=== PATIENT | female | born 1995 | race Caucasian/White ===

== ENCOUNTER 2016-10-06 12:11 | Inpatient (IN) | payer BC ==
[~2016-10-06] VITALS: Ht 160 cm; Wt 119.5 kg
[2016-10-24] VITALS (65 sets, daily range): BP systolic 90–151; BP diastolic 51–97; PULSE 67–141; TEMP 97.6–99.2
[2016-10-24 07:53] LABS: BASO % 0.1 % (0.0-2.0); EOS # 0.1 (0.0-0.7); EOS % 0.7 % (0-4.0); GRAN # 5.8 (1.4-6.5); LYMPH # 1.7 (1.2-3.4); LYMPH % 21.2 % (20.0-51.0); MEAN CELL VOLUME 84 fl (80.0-100.0); MEAN CORPUSCULAR HGB CONC 33 g/dl (33.0-37.0); MEAN PLATELET VOLUME 10.9 fl (7.4-10.4); MONO # 0.6 (0.1-0.6); MONO % 6.8 % (1.7-9.3); PLATELET COUNT 260 K/mm3 (130-400); RED BLOOD COUNT 4.04 M/mm3 (4.10-5.30); REDCELL DISTRIBUTION WIDTH-CV 14.7 % (11.5-14.5); WHITE BLOOD COUNT 8.2 K/mm3 (4.8-10.8)
[2016-10-24 07:55] LABS: HEMATOCRIT 34.1 % (37.0-47.0); HEMOGLOBIN 11.4 g/dl (12.5-16.0); MEAN CORPUSCULAR HEMOGLOBIN 28 pg (27.0-31.0)
[2016-10-25] VITALS (19 sets, daily range): BP systolic 13–149; BP diastolic 68–111; PULSE 72–118; TEMP 97.5–99.2
[2016-10-26 07:17] VITALS: BP 118/97; PULSE 101; TEMP 97.5
[2016-10-26 08:01] LABS: HEMATOCRIT 30.5 % (37.0-47.0)
[2016-10-26 16:02] VITALS: BP 102/64; PULSE 100; TEMP 98
[2016-10-26 20:30] VITALS: BP 121/68; PULSE 83; TEMP 97.5
[2016-10-27 07:37] VITALS: BP 104/68; PULSE 80; TEMP 97.3
[2016-10-27] MEDS ORDERED: IBU600 MG PO (13:19)
[2016-10-27] MEDS ORDERED: PERCOCET 325 MG1 TA2 PO (13:19)
[2016-10-27 16:14] VITALS: BP 118/67; PULSE 73; TEMP 98.3
[2016-10-27 20:00] VITALS: BP 137/88; PULSE 100; TEMP 98.9
[2016-10-28 07:37] VITALS: BP 113/83; PULSE 88; TEMP 98.1
== END 2016-10-28 10:20 | disposition home or self-care (01) | DRG 766 ==
LOC: EDSTATUS 10-15 08:05 → LDRO 10-15 12:11 → OB 10-24 07:02 → LDR 10-24 07:02 → OB 10-25 10:15
PROVIDERS: Obstetrics & Gynecology
PROC: 10D00Z1 Extraction of Products of Conception, Low, Open Approach (ICD-10-PCS; principal; 2016-10-25)
PROC: 0U960ZZ Drainage of Left Fallopian Tube, Open Approach (ICD-10-PCS; 2016-10-25)
PROC: 3E033VJ Introduction of Other Hormone into Peripheral Vein, Percutaneous Approach (ICD-10-PCS; 2016-10-25)
DX: O48.0 Post-term pregnancy (principal); O62.0 Primary inadequate contractions; O75.89 Other specified complications of labor and delivery; N83.8 Other noninflammatory disorders of ovary, fallopian tube and broad ligament; Z3A.41 41 weeks gestation of pregnancy; Z37.0 Single live birth
CPT/HCPCS: J0690; J1885; J2175; J2210; J2270; J2370; J2400; J2405; J2590; J2795; J3010; J7120

== ENCOUNTER 2019-06-11 08:46 | Inpatient (IN) | payer MEDICAID ==
[~2019-06-11] VITALS: Ht 160 cm; Wt 99.1 kg
[~2019-06-11 08:46] MED LIST: IBU600 MG PO; PERCOCET 325 MG1 TA2 PO
[2019-06-12] VITALS (15 sets, daily range): BP systolic 93–113; BP diastolic 51–73; PULSE 71–100; TEMP 97.4–97.9
--- NOTE | 2019-06-12 10:10 | NUR ---
Presents to labor amd delivery traylor for repeat section. Assessment done, questions offered and answered. Oriented to room.
[2019-06-12] MEDS ORDERED: PRENATAL MVI (10:36)
[2019-06-12 11:19] LABS: BASO % 0.2 % (0.0-2.0); EOS % 0.3 % (0-4.0); GRAN # 6.1 (1.4-6.5); GRAN % 67.1 % (42.2-75.2); HEMOGLOBIN 12.1 g/dl (12.5-16.0); LYMPH # 2.3 (1.2-3.4); LYMPH % 25.1 % (20.0-51.0); MEAN CELL VOLUME 90 fl (80.0-100.0); MEAN CORPUSCULAR HEMOGLOBIN 30 pg (27.0-31.0); MEAN CORPUSCULAR HGB CONC 33 g/dl (33.0-37.0); MEAN PLATELET VOLUME 10.4 fl (7.4-10.4); MONO # 0.6 (0.1-0.6); PLATELET COUNT 200 K/mm3 (130-400); RED BLOOD COUNT 4.08 M/mm3 (4.10-5.30); REDCELL DISTRIBUTION WIDTH-CV 13.8 % (11.5-14.5)
[2019-06-12 11:32] LABS: HEMATOCRIT 36.8 % (37.0-47.0)
[2019-06-12 12:21] LABS: MUCOUS Present /lpf; PH 6 (5-8); SQUAMOUS EPITHELIAL 0-2 /hpf; URINE APPEARANCE Hazy; URINE BACTERIA None Seen /hpf; URINE BILIRUBIN Negative (NEGATIVE); URINE BLOOD Negative (NEGATIVE); URINE COLOR Yellow; URINE GLUCOSE Negative (NEGATIVE); URINE KETONE Trace (NEGATIVE); URINE LEUKOCYTE ESTERASE Negative (NEGATIVE); URINE NITRATE Negative (NEGATIVE); URINE PROTEIN(semi-quant) 1+ (NEGATIVE); URINE RBC 0-2 /hpf; URINE UROBILINOGEN Negative (NEGATIVE); URINE WBC 0-2 /hpf
[2019-06-12 12:45] LABS: COLLECTION METHOD CLEAN CATCH
--- NOTE | 2019-06-12 13:05 | NUR ---
To pacu with this nurse and anesthesia Kari. Monitors on, warm blankets on. Denies any discomfort or pain at this time. Father of the baby at bedside.
--- NOTE | 2019-06-12 13:35 | NUR ---
To room 213 via bed, alert. Father of the baby at bedside.
--- NOTE | 2019-06-12 13:50 | NUR ---
Rests in bed, alert. Denies any pain or discomfort at this time. Father of the baby at bedside. Monitors on, scds on.
--- NOTE | 2019-06-12 14:20 | NUR ---
Rests in bed, alert. Holds baby lovingly. States just fed her.
--- NOTE | 2019-06-12 15:45 | NUR ---
Rests in bed, alert, holding baby. Percocet 5/325 mg one given per request and as ordered.
[2019-06-12 17:54] LABS: TRICYCLIC ANTIDEPRESS URINE NEGATIVE
[2019-06-13 03:00] VITALS: BP 121/84; PULSE 84; TEMP 97.9
[2019-06-13 07:14] LABS: HEMOGLOBIN 11.4 g/dl (12.5-16.0)
[2019-06-13 07:20] LABS: HEMATOCRIT 34.4 % (37.0-47.0)
[2019-06-13 08:10] VITALS: BP 121/98; PULSE 80; TEMP 98.7
[2019-06-13] MEDS ORDERED: IBU600 MG PO (11:28)
[2019-06-13] MEDS ORDERED: PERCOCET 325 MG1 TA2 PO (11:28)
[2019-06-13 16:16] VITALS: BP 114/68; PULSE 76; TEMP 97.4
[2019-06-13 20:00] VITALS: BP 105/60; PULSE 65; TEMP 98.2
[2019-06-14 08:13] VITALS: BP 102/63; PULSE 76; TEMP 98.1
== END 2019-06-14 13:57 | disposition home or self-care (01) | DRG 788 ==
LOC: OB 06-12 08:44
PROVIDERS: ADMIT Obstetrics & Gynecology
PROC: 10D00Z1 Extraction of Products of Conception, Low, Open Approach (ICD-10-PCS; principal; 2019-06-12)
DX: O34.211 Maternal care for low transverse scar from previous cesarean delivery (principal); O99.62 Diseases of the digestive system complicating childbirth; K21.9 Gastro-esophageal reflux disease without esophagitis; O69.1XX0 Labor and delivery complicated by cord around neck, with compression, not applicable or unspecified; Z37.0 Single live birth; Z3A.39 39 weeks gestation of pregnancy
CPT/HCPCS: J0690; J1885; J2270; J2370; J2405; J2590; J2765; J7120

== ENCOUNTER 2019-07-09 01:46 | Emergency (ER) | payer MEDICAID ==
[~2019-07-09] VITALS: Ht 160 cm; Wt 85.0 kg
[~2019-07-09 01:46] MED LIST changes: +PRENATAL MVI
[2019-07-09 02:07] VITALS: BP 109/67; PULSE 90; TEMP 98.4
== END 2019-07-09 02:10 | disposition home or self-care (01) ==
LOC: COL.ER 01:46
DX: T19.2XXA Foreign body in vulva and vagina, initial encounter (principal); Z30.432 Encounter for removal of intrauterine contraceptive device

== ENCOUNTER → 2019-10-01 | Outpatient (CLI) | payer MEDICAID | LOC: ZCOL.LAB 17:32 | DX: U07.1 COVID-19 (principal) ==

== ENCOUNTER → 2019-12-18 | Outpatient (CLI) | payer MEDICAID | LOC: ZCOL.LAB 16:31 | DX: Z20.828 Contact with and (suspected) exposure to other viral communicable diseases (principal) ==

== ENCOUNTER 2020-01-12 02:53 | Emergency (ER) | payer MEDICAID ==
[~2020-01-12] VITALS: Ht 160 cm; Wt 65.9 kg
[2020-01-12 02:58] VITALS: TEMP 97.9
[2020-01-12] MEDS ORDERED: NORCO 325 MG-51 TAB PO (03:11)
[2020-01-12] MEDS ORDERED: AMOXICILLIN 50500 MG PO (03:11)
[2020-01-12 03:30] VITALS: BP 121/81; PULSE 77
== END 2020-01-12 03:30 | disposition home or self-care (01) ==
LOC: COL.ER 02:53
DX: K02.9 Dental caries, unspecified (principal)

== ENCOUNTER → 2023-01-17 | Emergency (ER) | payer MEDICAID ==
[~2023-01-17] VITALS: Ht 160 cm; Wt 100.0 kg
[~2023-01-17] MED LIST changes: +AMOXICILLIN 50500 MG PO; +NORCO 325 MG-51 TAB PO
[2023-01-17 10:44] VITALS: TEMP 97.8
[2023-01-17 11:32] LABS: COLLECTION METHOD CLEAN CATCH
[2023-01-17 11:38] LABS: BASO % 0.4 % (0.0-2.0); EOS # 0.1 K/mm3 (0.0-0.7); GRAN # 4.5 K/mm3 (1.4-6.5); GRAN % 64.6 % (42.2-75.2); HEMOGLOBIN 13.8 g/dl (12.5-16.0); LYMPH % 27.9 % (20.0-51.0); MEAN CELL VOLUME 90 fl (80.0-100.0); MEAN CORPUSCULAR HEMOGLOBIN 30 pg (27-31); MEAN CORPUSCULAR HGB CONC 33 g/dl (33.0-37.0); MEAN PLATELET VOLUME 9.5 fl (7.4-10.4); MONO # 0.4 K/mm3 (0.1-0.6); MONO % 5.8 % (1.7-9.3); PLATELET COUNT 327 K/mm3 (130-400); RED BLOOD COUNT 4.65 M/mm3 (4.10-5.30); REDCELL DISTRIBUTION WIDTH-CV 13.1 % (11.5-14.5)
[2023-01-17 11:54] LABS: PH 8.5 (5.0-8.5); SQUAMOUS EPITHELIAL 0-2 /hpf (0-10); URINE APPEARANCE Clear (CLEAR/HAZY); URINE BLOOD Negative (NEGATIVE); URINE COLOR Yellow (YELLOW); URINE GLUCOSE Negative (NEGATIVE); URINE KETONE 1+ (NEGATIVE); URINE NITRATE Negative (NEGATIVE); URINE PROTEIN(semi-quant) Negative (NEGATIVE); URINE RBC None Seen /hpf (0-2); URINE UROBILINOGEN 0.2 E.U/dL (0.2-1.0)
[2023-01-17 12:17] LABS: ALBUMIN 4.4 gm/dL (3.5-5.0); BILIRUBIN,TOTAL 0.9 mg/dL (0.2-1.2); CALCIUM 9.9 mg/dL (8.4-10.2); CREATININE, serum 0.77 mg/dL (0.57-1.11); POTASSIUM 3.8 mmol/L (3.5-4.5); TOTAL PROTEIN 8.1 gm/dL (6.2-8.1)
[2023-01-17 13:48] VITALS: BP 118/76; PULSE 78
== END ==
LOC: COL.ER 10:30
PROVIDERS: Physician Assistant
DX: R10.11 Right upper quadrant pain (principal); F17.210 Nicotine dependence, cigarettes, uncomplicated
CPT/HCPCS: J1885